=== PATIENT | male | born 1950 | race Caucasian/White ===

== ENCOUNTER 2017-01-07 16:14 | Emergency (ER) | payer MEDICARE, OTHER ==
[2017-01-07 17:16] VITALS: BP 128/92
[2017-01-07] MEDS ORDERED: Acetaminophen TAB* 325 MG PO ONE (18:02)
--- NOTE | 2017-01-07 18:02 | UC ---
Lower Extremity/Ankle HPI - HPI Summary HPI Summary: patient has a hx of COPD and has been very fatigued recently started PT to increase activity leve. had last PT episode thursday, woke up tueday to red swollen ankle. has been elevating it and applying ice. - History of Current Complaint Chief Complaint: UCLowerExtremity Stated Complaint: LEFT ANKLE SWELLING Time Seen by Provider: 01/07/17 17:30 Hx Obtained From: Patient Onset/Duration: Sudden Onset, Lasting Days Severity Initially: Moderate Severity Currently: Moderate Pain Intensity: 4 Pain Scale Used: 0-10 Numeric Aggravating Factor(s): Standing, Ambulation Alleviating Factor(s): Rest Able to Bear Weight: Yes - Risk Factors Gout Risk Factors: Age Over 40, Hypertension DVT Risk Factors: Smoking Septic Arthritis Risk Factor: Negative - Allergies/Home Medications Allergies/Adverse Reactions: Allergies Allergy/AdvReac Type Severity Reaction Status Date / Time No Known Allergies Allergy Verified 01/07/17 17:02 Home Medications: Home Medications Albuterol HFA INHALER* [Ventolin HFA Inhaler*] 1 - 2 puff INH Q4H PRN 01/07/17 [ History Confirmed 01/07/17] Budesonide/Formote 160/4.5(NF) [Symbicort 160/4.5 (NF)] 1 puff INH BID 01/07/17 [History Confirmed 01/07/17] PMH/Surg Hx/FS Hx/Imm Hx Previously Healthy: Yes Cardiovascular History Of: Reports: Hypertension Respiratory History Of: Reports: COPD - Surgical History Surgical History: Yes Surgery Procedure, Year, and Place: colon cancer (removal of part of colon) - Family History Known Family History: Positive: Respiratory Disease - Social History Alcohol Use: None Substance Use Type: None Smoking Status (MU): Former Smoker When Did the Patient Quit Smoking/Using Tobacco: 09/2014 - Immunization History Most Recent Tetanus Shot: 06/18/2012 Review of Systems Constitutional: Fever, Fatigue Skin: Negative Eyes: Negative ENT: Negative Respiratory: Shortness Of Breath - with exertion Cardiovascular: Negative Gastrointestinal: Negative Genitourinary: Negative Motor: Negative Musculoskeletal: Arthralgia, Decreased ROM, Edema, Myalgia Neurological: Negative Psychological: Negative All Other Systems Reviewed And Are Negative: Yes Physical Exam Triage Information Reviewed: Yes Appearance: Well-Nourished, Ill-Appearing, Pain Distress Vital Signs: Initial Vital Signs Temp 100.4 F 01/07/17 17:04 Pulse 101 01/07/17 17:04 Resp 22 01/07/17 17:04 BP 128/92 01/07/17 17:04 Pulse Ox 91 01/07/17 17:04 Vital Signs Reviewed: Yes Eye Exam: Normal Eyes: Positive: Conjunctiva Clear ENT Exam: Normal ENT: Positive: Normal ENT inspection, Hearing grossly normal, Pharynx normal, TMs normal Dental Exam: Normal Neck exam: Normal Neck: Positive: Supple, Nontender, No Lymphadenopathy Respiratory Exam: Normal Respiratory: Positive: Lungs clear, No respiratory distress, No accessory muscle use, Decreased breath sounds Cardiovascular Exam: Normal Cardiovascular: Positive: RRR, No Murmur, Pulses Normal Abdominal Exam: Normal Abdomen Description: Positive: Nontender, No Organomegaly, Soft Bowel Sounds: Positive: Present Musculoskeletal Exam: Normal Musculoskeletal: Positive: Strength Intact, ROM Intact, No Edema Neurological Exam: Normal Neurological: Positive: Alert, Muscle Tone Normal Psychological Exam: Normal Skin: Positive: Other - red around left medial malleolus, swelling from top of ankle into the foot Lower Extremity Course/Dx - Course Course Of Treatment: hx obtained, exam performed, meds reviewed, tylenol given, xray obtained neg for fracture, no evidence of fx or infection. consluted with Dr Ralph for treatement plan. due to swelling and claf pain, transfered via private car to [facility]. - Differential Dx/Diagnosis Differential Diagnosis/HQI/PQRI: Bursitis, Cellulitis, Contusion, Fracture ( Closed), Septic Arthritis, Sprain, Strain, Tendonitis Provider Diagnoses: swollen left ankle. calf pain. COD. fever - Physician Notifications Discussed Patient Care With: satnam sol NP [facility] Instructed by Provider To: MD Will See In ED Discharge - Discharge Plan Condition: Stable Disposition: [facility]
--- NOTE | 2017-01-07 18:16 | RAD ---
HISTORY: Medial left ankle pain, swelling, no known injury COMPARISONS: None VIEWS: 3, Frontal, lateral, and oblique views of the left ankle FINDINGS: BONE DENSITY: Normal. BONES: There is no displaced fracture. JOINTS: There is no arthropathy. ALIGNMENT: There is no dislocation. SOFT TISSUES: There is soft tissue swelling predominantly along the medial aspect of the ankle. OTHER FINDINGS: None. IMPRESSION: SOFT TISSUE SWELLING. NO ACUTE OSSEOUS INJURY. IF SYMPTOMS PERSIST, RECOMMEND REPEAT IMAGING.
== END 2017-01-07 18:22 | disposition short-term general hospital (02) ==
LOC: UCCORT 16:14
DX: M25.472 Effusion, left ankle (principal); M79.662 Pain in left lower leg; R50.9 Fever, unspecified; J44.9 Chronic obstructive pulmonary disease, unspecified; Z85.038 Personal history of other malignant neoplasm of large intestine; Z87.891 Personal history of nicotine dependence
CPT/HCPCS: 99213; A9270-GY; G0463